=== PATIENT | male | born 1990 | race Caucasian/White ===

== ENCOUNTER 2020-08-13 18:43 | Emergency (ER) | payer OTHER, SELFPAY ==
--- NOTE | ~2020-08-13 | XR_ITS ---
XR chest 2V DATE: 08/13/2020 19:44 INDICATION: Left chest pain radiating to left shoulder for 5 hours. History of hypertension. TECHNIQUE: PA and lateral views COMPARISON: 06/24/2015 2 view chest FINDINGS: Normal heart size. No hilar or mediastinal enlargement. No pulmonary infiltrate or consolid ation, pleural effusion or pulmonary vascular congestion or pneumothorax. IMPRESSION: No active cardiopulmonary disease Reviewed, dictated and finalized at location A.
[2020-08-13 19:14] VITALS: BP 156/107; PULSE 96; RESP 20; TEMP 36.6; O2SAT 98
--- NOTE | 2020-08-13 19:19 | ECG_ITS ---
Measurements Intervals [place] Rate: 90 P: 31 [place]: 187 QRS: 15 QRSD: 95 T: 39 QT: 339 QTc: 416 Interpretive Statements SINUS RHYTHM NORMAL ECG Electronically Signed On 08-13-2020 20:19:52 CDT by Samy Tobar D.O.
[2020-08-13 19:35] LABS: Basophils Percent Auto 0.5 % (0.2-1.2); Eosinophils Absolute Auto 0.3 K/mm3 (0-0.3); Eosinophils Percent Auto 5.7 % (0-4.4); Hematocrit 44.3 % (42.0-52.0); Hemoglobin 15.2 g/dL (14.0-18.0); Immature Granulocyte Absolute 0.01 K/mm3 (0.00-0.031); Immature Granulocyte Percent A 0.2 % (0-0.5); Lymphocytes Absolute Auto 1.93 K/mm3 (0.9-3.2); Lymphocytes Percent Auto 33.4 % (18.3-44.2); Mean Corpuscular HGB Conc 34.3 g/dl (32-36); Mean Corpuscular Volume 87.4 fl (80-100); Mean Platelet Volume 10.7 fl (7.4-10.4); Monocytes Absolute Auto 0.4 K/mm3 (0.1-0.6); Monocytes Percent Auto 7.5 % (2.6-8.5); Neutrophils Percent Auto 52.7 % (45.5-73.1); Platelet Count Result 232 k/mm3 (150-375); Red Blood Count 5.07 M/mm3 (4.6-6.20); Red Cell Distribution Width 13.4 % (11.5-14.5); White Blood Count 5.8 K/mm3 (4.5-10.0)
[2020-08-13 19:43] LABS: INR 0.9; Prothrombin Time 12.6 Seconds (11.1-14.7)
[2020-08-13 19:44] LABS: Partial Thromboplastin Time 28.1 SECONDS (22.3-36.8)
[2020-08-13 19:47] LABS: Anion Gap 9 mmol/L (8-16); Blood Urea Nitrogen 14 mg/dL (9-20); Calcium 9.9 mg/dL (8.4-10.2); Carbon Dioxide 27 mmol/L (22-30); Chloride 105 mmol/L (98-107); Estimated CRCL calculation 145 ml/min; Estimated Glomerular Filt Rate > 60; Glucose 100 mg/dL (75-110); Potassium 3.9 mmol/L (3.4-5.0); Sodium 141 mmol/L (137-145)
[2020-08-13 19:59] LABS: Troponin I < 0.012 ng/mL (0.000-0.034)
[2020-08-13 21:07] VITALS: PULSE 79; RESP 11; O2SAT 98
[2020-08-13 21:08] VITALS: BP 156/80; PULSE 85; RESP 16; O2SAT 98
[2020-08-13 21:15] VITALS: PULSE 84; RESP 18; O2SAT 97
[2020-08-13 21:17] VITALS: BP 134/75; PULSE 90; RESP 15; O2SAT 98
[2020-08-13 21:18] VITALS: BP 128/72; PULSE 91; RESP 20; O2SAT 97
--- NOTE | 2020-08-13 21:44 | ED.CHESTPAIN ---
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 Aragon at [facility] patient at the hospital denying any chest pain resting comfortably in the room denies any cardiac history Related Data Allergies Allergy/AdvReac Type Severity Reaction Status Date / Time No Known Allergies Allergy Mild Verified 06/24/15 14:59 Review of Systems Review of Systems: All systems reviewed & are unremarkable except as noted in HPI and below PMFSH Social History Social History (Updated 08/13/20 @ 21:47 by Nguyễn Sorensen PA-C) Smoking status: Never smoker Gender identity (if verbalized by the patient): Male Exam Narrative: Exam Narrative: GENERAL: Well-appearing, well-nourished, and in no acute distress. HEAD: Normocephalic, atraumatic. EYES: PERRLA and EOMI. ENT: Nares clear, no rhinorrhea or epistaxis. Mucous membranes moist. CHEST: Clear to auscultation. No respiratory distress. No wheezes rales or rhonchi HEART: Regular rate and rhythm. No murmur heard. Normal peripheral pulses. ABDOMEN: Soft, nontender, nondistended EXTREMITIES: Normal range of motion. No edema. SKIN: Warm, dry, no rash. NEURO: No focal deficits. Alert and oriented x3. PSYCH: Normal mood and affect. Course Course Emergency Course: Patient in the room evaluated for chest pain chest pain-free in the emergency department no high risk changes in the evaluation ABCs and vital signs intact and stable will follow with primary care for further evaluation. Patient did not want to stay for his 3-hour troponin Vital Signs Vital signs: Vital Signs Temperature 97.8 F 08/13/20 19:14 Pulse Rate 96 08/13/20 19:14 Respiratory Rate 20 08/13/20 19:14 Blood Pressure 156/107 H 08/13/20 19:14 Pulse Oximetry 98 08/13/20 19:14 Temperature 97.8 F 08/13/20 19:14 Pulse Rate 91 08/13/20 21:18 Respiratory Rate 20 08/13/20 21:18 Blood Pressure 128/72 08/13/20 21:18 Pulse Oximetry 97 08/13/20 21:18 MDM - Chest Pain MDM Narrative Medical decision making narrative: ITS Impressions Chest X-Ray 08/13/20 19:45 IMPRESSION: No active cardiopulmonary disease Patients EKGs and labs are without significant high risk changes. Cardiac risk factors were reviewed. Patient is felt likely to be low risk for ACS and reasonable for further risk stratification testing as an outpatient. Pain was not sudden or maximal in onset without tearing or ripping. quality. No other signs or symptoms to suggest aortic dissection. A low-risk Wells criteria is noted. PE is felt to be unlikely. No pneumonia or URI symptoms were seen on evaluation today. Patient is felt to b reasonable for continued evaluation as an outpatient. Patient was advised to stay for 3 hours troponin but noted that he had to leave Lab Data Result diagrams: 08/13/20 19:28 08/13/20 19:28 Labs: Lab Results 08/13/20 08/13/20 08/13/20 Range/Units 19:28 19:28 19:28 WBC 5.8 (4.5-10.0) K/mm3 RBC 5.07 (4.6-6.20) M/mm3 Hgb 15.2 (14.0-18.0) g/dL Hct 44.3 (42.0-52.0) % MCV 87.4 (80-100) fl MCH 30.0 (26-34) pg MCHC 34.3 (32-36) g/dl RDW 13.4 (11.5-14.5) % Plt Count 232 (150-375) k/mm3 MPV 10.7 H (7.4-10.4) fl Immature Gran % (Auto) 0.2 (0-0.5) % Neut % (Auto) 52.7 (45.5-73.1) % Lymph % (Auto) 33.4 (18.3-44.2) % [place] %
== END 2020-08-13 22:49 | disposition left against medical advice (07) ==
PROVIDERS: Emergency Provider Emergency Medicine; PCP Emergency Medicine
DX: R07.89 Other chest pain (principal); I10 Essential (primary) hypertension
CPT/HCPCS: 36415; 71046; 80048; 84484; 85025; 85610; 85730; 93005; 99284